=== PATIENT | female | born 1970 | race Caucasian/White ===

== ENCOUNTER 2020-01-03 21:59 | Emergency (ER) | payer OTHER ==
[2020-01-03] MEDS ORDERED: KETOROLAC 30 MG/ML INJ ONE (22:28)
[2020-01-03 22:53] LABS: Absolute Lymphocytes (CBC) 2.4 K/uL (0.7-4.9); Basophils % 0.8 % (0-1.3); Hematocrit 34.9 % (36.0-45.0); Lymphocytes % 32.4 % (15.3-44.8); MPV 7.4 fL (7.6-11.3); RBC Red Blood Cell Count 3.84 M/uL (3.86-4.86)
[2020-01-03 23:05] LABS: ALT/SGPT 28 U/L (12-78); AST/SGOT 22 U/L (15-37); Albumin 3.9 g/dL (3.4-5.0); Alkaline Phosphatase 77 U/L (45-117); BUN Blood Urea Nitrogen 15 mg/dL (7-18); Bicarbonate 26 mmol/L (21-32); Bilirubin Direct < 0.1 mg/dL (0-0.2); Bilirubin Total 0.2 mg/dL (0.2-1.0); Glucose Level 87 mg/dL (74-106); Lipase 124 U/L (73-393); Potassium 3.8 mmol/L (3.5-5.1); Protein, Total 7.6 g/dL (6.4-8.2); Sodium Level 136 mmol/L (136-145)
[2020-01-03 23:10] LABS: Urine Blood NEGATIVE (NEG); Urine Glucose NEGATIVE (NEG); Urine Protein NEGATIVE (NEG); Urine pH 5.5 (5.0-7.0)
--- NOTE | 2020-01-04 00:22 | ER ---
Nurse's Notes [facility] Name: Cristela Blum Age: 49 yrs Sex: Female : 1970 Arrival Date: 01/03/2020 Time: 22:02 Bed 16 Private MD: Diagnosis: Sciatica, right side Presentation: 01/02 22:23 Chief complaint: Patient states: Lower back that that starts in the middle of the back aj1 and radiates to the right hip and right leg for the past 3 days. Patient reports history of kidney stones. Coronavirus screen: Proceed with normal triage. Patient denies a cough. Patient denies shortness of breath or difficulty breathing. Patient denies measured and/or subjective temperature greater than 100.4F prior to today's visit. Patient denies travel on a cruise ship or to a country the [facility] currently lists as an affected area. Ebola Screen: Patient denies travel to an Ebola-affected area in the 21 days before illness onset. Initial Sepsis Screen: Does the patient meet any 2 criteria? No. Patient's initial sepsis screen is negative. Does the patient have a suspected source of infection? No. Patient's initial sepsis screen is negative. Risk Assessment: Do you want to hurt yourself or someone else? Patient reports no desire to harm self or others. Onset of symptoms was December 2019. 22:23 Method Of Arrival: Ambulatory aj1 22:23 Acuity: TIM 4 aj1 Triage Assessment: 22:25 General: Appears in no apparent distress. uncomfortable, Behavior is calm, cooperative, aj1 appropriate for age. Pain: Complains of pain in lumbar area and right low back Pain radiates to right leg. Neuro: Level of Consciousness is awake, alert, obeys commands, Oriented to person, place, time, situation. Cardiovascular: Patient's skin is warm and dry. Respiratory: Airway is patent Respiratory effort is even, unlabored, Respiratory pattern is regular, symmetrical. Musculoskeletal: Range of motion: intact in all extremities. 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 - Social history:: Smoking status: Patient/guardian denies using tobacco. Screenin:15 Abuse screen: Denies threats or abuse. Denies injuries from another. Nutritional wh screening: No deficits noted. Tuberculosis screening: No symptoms or risk factors identified. Fall Risk None identified. Assessment: 22:40 General: Appears in no apparent distress. Behavior is calm, cooperative, appropriate wh for age. Pain: Complains of pain in right low back and lumbar area Pain radiates to right leg Quality of pain is described as shooting, Pain began 1 day ago. Is intermittent. Neuro: Level of Consciousness is awake, alert, obeys commands, Oriented to person, place, time, situation, none. Cardiovascular: Capillary refill < 3 seconds. Respiratory: Airway is patent Respiratory effort is even, unlabored, Respiratory pattern is regular, symmetrical. GI: Abdomen is flat, non-distended. : No signs and/or symptoms were reported regarding the genitourinary system. EENT: No signs and/or symptoms were reported regarding the EENT system. Derm: Skin is intact, is healthy with good turgor, Skin is pink, warm \T\ dry. normal. Musculoskeletal: Circulation, motion, and sensation intact. 23:16 Reassessment: Patient appears in no apparent distress at this time. No changes from previously documented assessment. Patient and/or family updated on plan of care and expected duration. Pain level reassessed. Patient is alert, oriented x 3, equal unlabored respirations, skin warm/dry/pink. Patient states feeling better. Patient states symptoms have improved. 01/03 00:20 Reassessment: Patient appears in no apparent distress at this time. No changes from previously documented assessment. Patient and/or family updated on plan of care and expected duration. Pain level reassessed. Patient is alert, oriented x 3, equal unlabored respirations, skin warm/dry/pink. Patient states feeling better. Patient states symptoms have improved. Vital Signs: 01/02 22:23 BP 135 / 86; Pulse 69; Resp 18; Temp 98.0; Pulse Ox 100% on R/A; Weight 68.04 kg (R); aj1 Height 5 ft. 7 in. (170.18 cm) (R); 23:19 BP 114 / 71; Pulse 67; Resp 18; Pulse Ox 98% on R/A; 01/03 00:35 BP 125 / 94; Pulse 70; Resp 18; Pulse Ox 96% ; 01/02 22:23 Body Mass Index 23.49 (68.04 kg, 170.18 cm) aj1 ED Course: 01/02 22:02 Patient arrived in ED. es 22:10 Juan Herirng MD is Attending Physician. tw4 22:18 Theron Russell is Primary Nurse. 22:25 Triage completed. aj1 22:25 Arm band placed on Patient placed in an exam room. aj1 22:30 Patient has correct armband on for positive identification. Bed in low position. Call light in reach. Side rails up X 1. Pulse ox on. NIBP on. 22:30 Inserted saline lock: 20 gauge in left antecubital area, using aseptic technique. Blood wh collected. 23:11 CT Stone Protocol In Process Unspecified. EDVT 01/03 00:36 No provider procedures requiring assistance completed. IV discontinued, intact, bleeding controlled, No redness/swelling at site. Administered Medications: 01/02 22:39 Drug: TORadol 30 mg Route: IVP; Site: left antecubital; 23:08 Follow up: Response: No adverse reaction; Pain is decreased 01/03 00:26 Drug: traMADol 50 mg Route: PO; 00:34 Follow up: Response: No adverse reaction; Pain is decreased; RASS: Alert and Calm (0) 00:26 Drug: Gabapentin 300 mg Route: PO; 00:34 Follow up: Response: No adverse reaction Outcome: 00:21 Discharge ordered by . tw4 00:36 Discharged to home ambulatory. 00:36 Condition: stable 00:36 Discharge instructions given to patient, Instructed on discharge instructions, follow up and referral plans. no drinking with medication, no driving heavy equipment, medication usage, POC Demonstrated understanding of instructions, follow-up care, medications, POC Prescriptions given X 3. 00:36 Patient left the ED. Signatures: Dispatcher [employer] EDVT Annabel Alfaro, RN RN aj1 Ashwini Hoff Winsy Juan Herring MD MD tw4 Corrections: (The following items were deleted from the chart) 01/02 23:57 22:40 Pain: Complains of pain in right low back and lumbar area Pain does not radiate. wh Quality of pain is described as shooting, Pain began 1 day ago. Is intermittent, wh
--- NOTE | 2020-01-04 00:22 | EDPHYS ---
Physician Documentation [facility] Name: Cristela Blum Age: 49 yrs Sex: Female : 1970 Arrival Date: 01/03/2020 Time: 22:02 Bed 16 Private MD: ED Physician Juan Herring HPI: 01/03 02:57 This 49 yrs old Female presents to ER via Ambulatory with complaints of Back tw4 Pain, Hip Injury. 02:57 The patient presents with pain that is acute. The symptoms are located in the coccyx tw4 area. Onset: The symptoms/episode began/occurred yesterday. The pain radiates to the right leg. Associated signs and symptoms: The patient has no apparent associated signs or symptoms. Modifying factors: The patient symptoms are alleviated by rest, the patient symptoms are aggravated by bending, coughing. Severity of symptoms: At their worst the symptoms were moderate, in the emergency department the symptoms are unchanged. The patient has experienced similar episodes in the past, a few times. 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 - Social history:: Smoking status: Patient/guardian denies using tobacco. ROS: 01/03 02:57 Constitutional: Negative for fever, chills, and weight loss, Eyes: Negative for injury, tw4 pain, redness, and discharge, ENT: Negative for injury, pain, and discharge, Cardiovascular: Negative for chest pain, palpitations, and edema, Respiratory: Negative for shortness of breath, cough, wheezing, and pleuritic chest pain, Abdomen/GI: Negative for abdominal pain, nausea, vomiting, diarrhea, and constipation, MS/Extremity: Negative for injury and deformity, Skin: Negative for injury, rash, and discoloration. Back: Positive for pain at rest, pain with movement. Exam: 02:57 Constitutional: This is a well developed, well nourished patient who is awake, alert, tw4 and in no acute distress. Head/Face: Normocephalic, atraumatic. Chest/axilla: Normal chest wall appearance and motion. Nontender with no deformity. No lesions are appreciated. Cardiovascular: Regular rate and rhythm with a normal S1 and S2. No gallops, murmurs, or rubs. Normal PMI, no JVD. No pulse deficits. Respiratory: Lungs have equal breath sounds bilaterally, clear to auscultation and percussion. No rales, rhonchi or wheezes noted. No increased work of breathing, no retractions or nasal flaring. Abdomen/GI: Soft, non-tender, with normal bowel sounds. No distension or tympany. No guarding or rebound. No evidence of tenderness throughout. MS/ Extremity: Pulses equal, no cyanosis. Neurovascular intact. Full, normal range of motion. Neuro: Awake and alert, GCS 15, oriented to person, place, time, and situation. Cranial nerves II-XII grossly intact. Motor strength 5/5 in all extremities. Sensory grossly intact. Cerebellar exam normal. Normal gait. 03:27 Back: pain, that is moderate, of the right low back, ROM is decreased, normal spinal tw4 alignment noted, vertebral tenderness, is not appreciated. Vital Signs: 01/02 22:23 BP 135 / 86; Pulse 69; Resp 18; Temp 98.0; Pulse Ox 100% on R/A; Weight 68.04 kg (R); aj1 Height 5 ft. 7 in. (170.18 cm) (R); 23:19 BP 114 / 71; Pulse 67; Resp 18; Pulse Ox 98% on R/A; wh 01/03 00:35 BP 125 / 94; Pulse 70; Resp 18; Pulse Ox 96% ; 01/02 22:23 Body Mass Index 23.49 (68.04 kg, 170.18 cm) aj1 MDM: 01/02 22:10 Patient medically screened. tw4 01/03 02:57 Data reviewed: vital signs, nurses notes. Data interpreted: Pulse oximetry: tw4 Interpretation: normal. Counseling: I had a detailed discussion with the patient and/or guardian regarding: the historical points, exam findings, and any diagnostic results supporting the discharge/admit diagnosis. Special discussion: I discussed with the patient/guardian in detail that at this point there is no indication for admission to the hospital. It is understood, however, that if the symptoms persist or worsen the patient needs to return immediately for re-evaluation. 03:27 Differential diagnosis: chronic back pain, Fatigue Fracture Joint Injury Ligament tw4 Injury Ureterolithiasis vertebral fracture. Medication response: Toradol markedly relieved the patient's pain. Response to treatment: and as a result, I will discharge patient. 01/02 22:12 Order name: Basic Metabolic Panel; Complete Time: 23:36 [facility] 01/02 23:36 Interpretation: Normal except: GFR 79. [facility] 01/02 22:12 Order name: CBC with Diff; Complete Time: 23:36 [facility] 01/02 23:36 Interpretation: Normal except: RBC 3.84; HGB 11.8; HCT 34.9; MPV 7.4. [facility] 01/02 22:12 Order name: Hepatic Function; Complete Time: 23:36 [facility] 01/02 23:37 Interpretation: Normal except: GLOB 3.7. [facility] 01/02 22:12 Order name: Lipase; Complete Time: 23:36 [facility] 01/02 22:37 Order name: Urine Dipstick--Ancillary (enter results); Complete Time: 23:36 [facility] 01/02 22:37 Order name: Urine --Ancillary (enter results); Complete Time: 23:36 [facility] 01/02 22:12 Order name: IV Saline Lock; Complete Time: 22:39 [facility] 01/02 22:12 Order name: Labs collected and sent; Complete Time: 22:39 [facility] 01/02 22:12 Order name: CT Stone Protocol tw4 Administered Medications: 01/02 22:39 Drug: TORadol 30 mg Route: IVP; Site: left antecubital; 23:08 Follow up: Response: No adverse reaction; Pain is decreased 01/03 00:26 Drug: traMADol 50 mg Route: PO; 00:34 Follow up: Response: No adverse reaction; Pain is decreased; RASS: Alert and Calm (0) 00:26 Drug: Gabapentin 300 mg Route: PO; 00:34 Follow up: Response: No adverse reaction Disposition: 01/04/20 00:21 Discharged to Home. Impression: Sciatica, right side. - Condition is Stable. - Discharge Instructions: Sciatica, Radicular Pain. - Prescriptions for Cyclobenzaprine 10 mg Oral Tablet - take 1 tablet by ORAL route every 8 hours As needed; 30 tablet. Tramadol 50 mg Oral Tablet - take 1 tablet by ORAL route every 8 hours as needed; 12 tablet. gabapentin 100 mg Oral capsule - take 3 capsule by ORAL route 3 times per day; 90 capsule. - Medication Reconciliation Form, Thank You Letter, Antibiotic Education, Prescription Opioid Use form. - Follow up: Private Physician; When: Upon discharge from the Emergency Department; Reason: Recheck today's complaints, Continuance of care, Re-evaluation by your physician. - Problem is new. - Symptoms have improved. Signatures: Dispatcher [employer] EDAnnabel Ragland RN RN aj1 Theron Russell Juan Herring MD MD tw4 Corrections: (The following items were deleted from the chart) 00:36 00:21 01/04/2020 00:21 Discharged to Home. Impression: Sciatica, right side. Condition wh is Stable. Forms are Medication Reconciliation Form, Thank You Letter, Antibiotic Education, Prescription Opioid Use. Follow up: Private Physician; When: Upon discharge from the Emergency Department; Reason: Recheck today's complaints, Continuance of care, Re-evaluation by your physician. Problem is new. Symptoms have improved. tw4 03:28 02:57 Back: pain, that is very mild, ROM is normal, tw4 tw4
[2020-01-04] MEDS ORDERED: GABAPENTIN 300 MG CAP ONE (00:30)
[2020-01-04] MEDS ORDERED: TRAMADOL HCL 50 MG TAB ONE (00:32)
[2020-01-04 00:54] VITALS: TEMP 98
[2020-01-04 00:57] VITALS: BP 125/94; O2SAT 96
--- NOTE | 2020-01-04 11:21 | RAD REPORT ---
EXAM DESCRIPTION: CT - Stone Protocol - 01/04/2020 4:41 am ADDENDUM #1 Following initial reading the images were reprocessed providing more adequate sagittal and coronal re formatted images. No additional findings. Electronically signed by: Moo Justice 01/04/2020 12:03 AM CDT End of Addendum EXAM DESCRIPTION: CT ABDOMEN AND PELVIS WITHOUT CONTRAST CLINICAL HISTORY: KIDNEY STONES COMPARISON: None Available. TECHNIQUE: CT of the abdomen and pelvis without IV contrast. Evaluation of the solid organs and vasc ulature is suboptimal due to lack of IV contrast. Motion artifact. FINDINGS: Lung Bases: The visualized lung bases are clear. Bones: Mild degenerative change of the spine and hips. Abdomen: Liver: The liver has normal size and density. Gallbladder: No calcified gallstones. Spleen, Pancreas, and Adrenal Glands: The spleen, pancreas, and adrenal glands are unremarkable. Kidneys: The kidneys have normal size without evidence of hydronephrosis. No obstructing ureteral malena culi. Vasculature: The aorta and IVC have normal caliber and position. Stomach: The stomach and duodenum have normal course. Other: No free intraperitoneal air. No free fluid or lymphadenopathy. Pelvis: Bladder: Urinary bladder is unremarkable. Bowel: No dilated loops of large or small bowel. Appendix: Normal appendix. Pelvis: Uterus is not enlarged. IMPRESSION: 1. No acute inflammatory or obstructive process identified. This exam was performed according to our departmental dose-optimization program, which includes autom ated exposure control, adjustment of the mA and/or kV according to patient size and/or use of iterati ve reconstruction technique. Electronically signed by: Moo Justice 01/03/2020 11:23 PM CDT Due to temporary technical issues with the PACS/Fluency reporting system, reports are being signed by the in house radiologist without review as a courtesy to ensure prompt reporting. The interpreting r adiologist is fully responsible for the content of the report.
== END 2020-01-04 00:36 | disposition home or self-care (01) ==
LOC: ER 21:59
DX: M54.31 Sciatica, right side (principal); E03.9 Hypothyroidism, unspecified; Z87.442 Personal history of urinary calculi
CPT/HCPCS: 36415; 74176; 76377; 80048; 80076; 81003; 81025; 83690; 85025; 96374; 99284